=== PATIENT | female | born 1975 | race Caucasian/White ===

== ENCOUNTER 2018-05-02 14:52 | Emergency (ER) | payer OTHER ==
[~2018-05-02] VITALS: Ht 154.9 cm; Wt 75.3 kg
== END 2018-05-02 18:07 | disposition home or self-care (01) ==
LOC: ER 14:52
DX: R07.89 Other chest pain (principal); M79.622 Pain in left upper arm

== ENCOUNTER 2018-11-26 12:58 | Emergency (ER) | payer OTHER ==
[~2018-11-26] VITALS: Ht 152.4 cm; Wt 78.9 kg
== END 2018-11-26 20:17 | disposition home or self-care (01) ==
LOC: ER 12:58
DX: M54.5 Low back pain (principal); R10.11 Right upper quadrant pain

== ENCOUNTER 2019-01-07 12:51 | Emergency (ER) | payer OTHER ==
[~2019-01-07] VITALS: Ht 152.4 cm; Wt 75.7 kg
== END 2019-01-07 19:58 | disposition home or self-care (01) ==
LOC: ER 12:51
DX: G44.209 Tension-type headache, unspecified, not intractable (principal)